=== PATIENT | female | born 2005 | race Caucasian/White ===

== ENCOUNTER 2025-05-16 21:01 | Emergency (ER) | payer OTHER | END 2025-05-16 21:33 | disposition home or self-care (01) | LOC: CSHERS 21:01 | DX: S16.1XXA Strain of muscle, fascia and tendon at neck level, initial encounter (principal); M54.6 Pain in thoracic spine; V43.62XA Car passenger injured in collision with other type car in traffic accident, initial encounter; Z55.6 Problems related to health literacy | CPT/HCPCS: 99283 ==